=== PATIENT | female | born 1990 | race Caucasian/White ===

== ENCOUNTER 2019-02-24 11:44 | Outpatient (CLI) | payer MEDICAID | END 2019-02-24 16:00 | disposition home or self-care (01) | LOC: OBT 11:44 → L-D 11:45 → OBT 16:00 | DX: O36.8130 Decreased fetal movements, third trimester, not applicable or unspecified (principal); Z3A.34 34 weeks gestation of pregnancy | CPT/HCPCS: 76818 ==

== ENCOUNTER 2019-03-07 10:39 | Outpatient (CLI) | payer MEDICAID ==
[2019-03-07 11:58] LABS: ADD UMIC YES; UR ASCORBIC ACID NEGATIVE (NEGATIVE); UR BACTERIA FEW /HPF (NONE SEEN); UR BILIRUBIN (Dip) NEGATIVE (NEGATIVE); UR BLOOD (Dip) NEGATIVE (NEGATIVE); UR CLARITY CLOUDY (CLEAR); UR COLOR YELLOW (YELLOW); UR GLUCOSE (Dip) NEGATIVE (NEGATIVE); UR KETONES (Dip) NEGATIVE (NEGATIVE); UR LEUKOCYTE ESTERASE (Dip) 2+ Leu/ul (NEGATIVE); UR MUCUS FEW /HPF (NONE SEEN); UR NITRITE (Dip) NEGATIVE (NEGATIVE); UR RBC 1 /HPF (0-5); UR SPECIFIC GRAVITY (Dip) 1.015 (1.003-1.030); UR SQUAMOUS EPITHELIAL CELL MANY /HPF (FEW); UR TOTAL PROTEIN (Dip) NEGATIVE (NEGATIVE); UR UROBILINOGEN (Dip) NEGATIVE (NEGATIVE); UR WBC 14 /HPF (0-5)
== END 2019-03-07 13:50 | disposition home or self-care (01) ==
LOC: OBT 10:39 → L-D 10:39 → OBT 13:50
DX: O26.893 Other specified pregnancy related conditions, third trimester (principal); W19.XXXA Unspecified fall, initial encounter; M25.569 Pain in unspecified knee; Z3A.37 37 weeks gestation of pregnancy
CPT/HCPCS: 76818; 81001; 85460

== ENCOUNTER 2019-03-16 12:04 | Outpatient (CLI) | payer MEDICAID ==
[2019-03-16 12:52] LABS: ADD UMIC YES; UR ASCORBIC ACID 40 mg/dL (NEGATIVE); UR BACTERIA FEW /HPF (NONE SEEN); UR BILIRUBIN (Dip) NEGATIVE (NEGATIVE); UR BLOOD (Dip) NEGATIVE (NEGATIVE); UR CLARITY CLOUDY (CLEAR); UR COLOR AMBER (YELLOW); UR GLUCOSE (Dip) NEGATIVE (NEGATIVE); UR KETONES (Dip) NEGATIVE (NEGATIVE); UR LEUKOCYTE ESTERASE (Dip) 2+ Leu/ul (NEGATIVE); UR MUCUS FEW /HPF (NONE SEEN); UR NITRITE (Dip) NEGATIVE (NEGATIVE); UR RBC 1 /HPF (0-5); UR SPECIFIC GRAVITY (Dip) 1.023 (1.003-1.030); UR SQUAMOUS EPITHELIAL CELL MANY /HPF (FEW); UR TOTAL PROTEIN (Dip) NEGATIVE (NEGATIVE); UR UROBILINOGEN (Dip) 1+ mg/dL (NEGATIVE); UR WBC 19 /HPF (0-5)
== END 2019-03-16 15:15 | disposition home or self-care (01) ==
LOC: OBT 12:04 → L-D 12:06 → OBT 15:15
DX: O62.9 Abnormality of forces of labor, unspecified (principal); Z3A.37 37 weeks gestation of pregnancy
CPT/HCPCS: 76818; 81001

== ENCOUNTER 2019-03-24 13:02 | Inpatient (IN) | payer MEDICAID ==
[2019-03-24] MEDS ORDERED: LACTATED RINGER'S 1,000 ML IV (15:37)
[2019-03-24 15:43] LABS: ADD MAN DIFF? NO
[2019-03-24 15:48] LABS: BASOPHILS % 0.3 % (0.0-2.0); EOSINOPHILS # 0.1 10^3/ul (0.0-0.5); EOSINOPHILS % 0.8 % (0.0-7.0); HEMATOCRIT 35.7 % (37.0-47.0); HEMOGLOBIN 12.2 g/dl (12.0-16.0); LYMPHOCYTES # 2.9 10^3/ul (0.8-2.9); LYMPHOCYTES % 32.4 % (15.0-51.0); MEAN CORPUSCULAR HEMOGLOBIN 32.2 pg (29.0-33.0); MEAN CORPUSCULAR HGB CONC 34.2 g/dl (32.0-37.0); MEAN CORPUSCULAR VOLUME 94.2 fl (82.0-101.0); MEAN PLATELET VOLUME 11.3 fl (7.4-10.4); MONOCYTE # 0.7 10^3/ul (0.3-0.9); MONOCYTES % 7.6 % (0.0-11.0); NEUTROPHIL # 5.2 10^3/ul (1.6-7.5); NEUTROPHILS % 57.8 % (39.0-77.0); PLATELET COUNT 199 10^3/UL (140-415); RED BLOOD COUNT 3.79 10^6/ul (4.20-5.40); RED CELL DISTRIBUTION WIDTH 14.1 % (11.5-14.5)
[2019-03-24 15:48] LABS: WHITE BLOOD COUNT 8.9 10^3/ul (4.8-10.8)
[2019-03-24 15:52] LABS: INR 0.87; PROTIME 11.9 Sec (11.9-14.9); PT RATIO 0.9
[2019-03-24 15:53] LABS: PARTIAL THROMBOPLASTIN TIME 23.9 Sec (23.0-35.0)
[2019-03-24] MEDS ORDERED: MISOPROSTOL 200 MCG TAB PR ×2 (16:00→20:30)
[2019-03-24] MEDS ORDERED: LIDOCAINE 1% (MPF) 30 ML INJ INJ (16:00)
[2019-03-24] MEDS ORDERED: CARBOPROST 250 MCG INJ IM ×2 (16:00→20:30)
[2019-03-24] MEDS ORDERED: METHYLERGONOVINE 0.2 MG INJ IM ×2 (16:00→20:30)
[2019-03-24] MEDS ORDERED: BUTORPHANOL 2 MG INJ IV (16:00)
[2019-03-24] MEDS ORDERED: OXYTOCIN 30 UNITS/LR 500 ML IV ×3 (16:00→20:30)
[2019-03-24] MEDS: LACTATED RINGER'S 1,000 ML IV (17:06)
[2019-03-24] MEDS: AMPICILLIN 2 GM/NS (PMX) 100 ML IV (17:06)
[2019-03-24 17:12] LABS: RAPID PLASMA REAGIN NONREACTIVE (NR)
[2019-03-24] MEDS: OXYTOCIN 30 UNITS/LR 500 ML IV ×2 (17:17→19:57)
[2019-03-24 17:50] LABS: HEPATITIS B SURFACE ANTIGEN NEGATIVE (NEGATIVE)
[2019-03-24] MEDS: IBUPROFEN 600 MG TAB PO ×2 (19:56→23:47)
[2019-03-24] MEDS: AMPICILLIN 1 GM/NS (PMX) 50 ML IV (20:00)
[2019-03-24] MEDS ORDERED: DIBUCAINE 1% 30 GM OINT TOP (20:30)
[2019-03-24] MEDS ORDERED: ACETAMINOPHEN 325 MG TAB PO ×2 (20:30)
[2019-03-24] MEDS ORDERED: ONDANSETRON 4 MG INJ IV (20:30)
[2019-03-24] MEDS ORDERED: BENZOCAINE 20% 56 ML SPRAY TOP (20:30)
[2019-03-24] MEDS: LANOLIN HPA 1 PKT TOP (23:47)
[2019-03-24] MEDS: WITCH HAZEL/GLYCERIN PAD PR (23:47)
[2019-03-25] MEDS: OXYTOCIN 30 UNITS/LR 500 ML IV (00:35)
[2019-03-25] MEDS: SENNA/DOCUSATE NA (8.6MG/50MG) TAB PO ×2 (08:30→23:23)
[2019-03-25 08:50] LABS: ADD MAN DIFF? NO
[2019-03-25 08:53] LABS: WHITE BLOOD COUNT 12.1 10^3/ul (4.8-10.8)
[2019-03-25 08:53] LABS: BASOPHILS % 0.2 % (0.0-2.0); EOSINOPHILS # 0.1 10^3/ul (0.0-0.5); EOSINOPHILS % 0.8 % (0.0-7.0); HEMATOCRIT 34.2 % (37.0-47.0); HEMOGLOBIN 11.6 g/dl (12.0-16.0); LYMPHOCYTES # 3.6 10^3/ul (0.8-2.9); LYMPHOCYTES % 29.9 % (15.0-51.0); MEAN CORPUSCULAR HEMOGLOBIN 32.2 pg (29.0-33.0); MEAN CORPUSCULAR HGB CONC 33.9 g/dl (32.0-37.0); MEAN PLATELET VOLUME 11.5 fl (7.4-10.4); MONOCYTE # 0.9 10^3/ul (0.3-0.9); MONOCYTES % 7.2 % (0.0-11.0); NEUTROPHIL # 7.4 10^3/ul (1.6-7.5); NEUTROPHILS % 60.7 % (39.0-77.0); PLATELET COUNT 191 10^3/UL (140-415); RED CELL DISTRIBUTION WIDTH 13.9 % (11.5-14.5)
[2019-03-25] MEDS: LACTATED RINGER'S 1,000 ML IV* (12:05)
[2019-03-25] MEDS: IBUPROFEN 600 MG TAB PO (23:24)
[2019-03-26] MEDS: SENNA/DOCUSATE NA (8.6MG/50MG) TAB PO (08:52)
[2019-03-26] MEDS: MAGNESIUM HYDROXIDE 30ML CUP PO (08:52)
== END 2019-03-26 17:30 | disposition home or self-care (01) | DRG 807 ==
LOC: OBT 13:02 → L-D 13:02 → OBT 13:55 → L-D 13:55 → PP1 21:46
PROVIDERS: Obstetrics & Gynecology
PROC: 10E0XZZ Delivery of Products of Conception, External Approach (ICD-10-PCS; principal; 2019-03-24)
DX: O80 Encounter for full-term uncomplicated delivery (principal); Z37.0 Single live birth; Z3A.38 38 weeks gestation of pregnancy
CPT/HCPCS: 76815; 85025; 85610; 85730; 86592; 86900; 86901; 87340; 99464